=== PATIENT | male | born 1960 | race Two or more races ===

== ENCOUNTER 2019-12-11 11:12 | Observation (INO) ==
[2019-12-11 12:42] LABS: Basophils % 0.2 % (0.0-0.8); Eosinophils % 0.6 % (0.00-10.9); Hematocrit 46.5 VOL% (42.0-52.0); Hemoglobin 16.1 GM/DL (14.0-18.0); Immature Granulocytes % 0.2 %; Immature Granulocytes Absolute 0.01 #; Lymphocytes # 1.8 10*3/uL (1.4-4.0); Mean Corpuscular HGB Conc 34.6 GM/DL (32-36); Mean Corpuscular Volume 90.5 FL (87-102); Mean Platelet Volume 9.5 FL (9.6-12.0); Monocytes % 6.3 % (1.7-12.7); Neutrophils % 65.7 % (38.7-73.9); Platelet Count 241 T/CUMM (130-400); Red Blood Count 5.14 MC/CUMM (3.8-5.5); Red Cell Distribution Width 12.8 % (9.3-17.3); White Blood Count 6.6 T/CUMM (4-12)
[2019-12-11 12:53] LABS: PT Patient Result 10.4 SECS (9.8-11.9); Partial Thromboplastin Time 25.7 SECS (23.9-33.8)
[2019-12-11 13:01] LABS: Alanine Aminotransferase 87 U/L (16-61); Albumin 3.8 G/DL (3.4-5.0); Alkaline Phosphatase 65 U/L (45-117); Aspartate Amino Transferase 41 U/L (0-37); Blood Urea Nitrogen 14 MG/DL (7-18); Calcium 8.9 MG/DL (8.5-10.1); Estimated Glom Filtration Rate 77 ML/MIN; Glucose 92 MG/DL (74-106); Total Protein 8.1 G/DL (6.4-8.3); Troponin I < 0.015 NG/ML (0.00-0.045)
[2019-12-11] MEDS ORDERED: LABETALOL 20 MG/4 ML SYRINGE IV PRN (14:47)
[2019-12-11] MEDS ORDERED: GLUCAGON 1 MG VIAL IM PRN ×2 (14:47→15:39)
[2019-12-11] MEDS ORDERED: diphenhydrAMINE CAP 25 MG CAPSULE PO PRN ×2 (14:47→15:39)
[2019-12-11] MEDS ORDERED: ONDANSETRON 4 MG/2 ML VIAL IV PRN ×2 (14:47→15:39)
[2019-12-11] MEDS ORDERED: ALUMINUM/MAGNES/SIMETH MAX STR 30 ML UDCUP PO PRN ×2 (14:47→15:39)
[2019-12-11] MEDS ORDERED: DEXTROSE 50% 25 GM/50 ML VIAL IV PRN ×2 (14:47→15:39)
[2019-12-11] MEDS ORDERED: BISACODYL 5 MG TABLET PO PRN ×2 (14:47→15:39)
[2019-12-11] MEDS ORDERED: ENOXAPARIN 40 MG/0.4 ML SYRINGE SUBCUT SCH ×2 (15:00→16:00)
[2019-12-11 15:22] LABS: Risk Ratio 4.27; Thyroid Stimulating Hormone 1.55 uIU/ml (0.358-3.74)
[2019-12-11] MEDS ORDERED: hydrALAZINE 20 MG/1 ML VIAL IV PRN ×2 (15:39→15:47)
[2019-12-11] MEDS ORDERED: ASPIRIN EC 325 MG TABLET PO SCH (21:00)
[2019-12-12 05:23] LABS: Basophils % 0.3 % (0.0-0.8); Eosinophils # 0.1 10*3/uL (0.0-0.87); Eosinophils % 1.6 % (0.00-10.9); Hematocrit 44.5 VOL% (42.0-52.0); Hemoglobin 15.1 GM/DL (14.0-18.0); Immature Granulocytes % 0.2 %; Immature Granulocytes Absolute 0.01 #; Lymphocytes # 2.8 10*3/uL (1.4-4.0); Mean Corpuscular HGB Conc 33.9 GM/DL (32-36); Mean Corpuscular Volume 91.9 FL (87-102); Mean Platelet Volume 9.8 FL (9.6-12.0); Neutrophils % 45.9 % (38.7-73.9); Platelet Count 231 T/CUMM (130-400); Red Blood Count 4.84 MC/CUMM (3.8-5.5); Red Cell Distribution Width 12.8 % (9.3-17.3); White Blood Count 6.4 T/CUMM (4-12)
[2019-12-12 05:33] LABS: Calcium 8.7 MG/DL (8.5-10.1)
[2019-12-12] MEDS ORDERED: PANTOPRAZOLE 40 MG TABLET PO SCH ×2 (09:00)
[2019-12-12 12:13] VITALS: BP 143/94
== END 2019-12-12 13:39 | disposition home or self-care (01) ==
LOC: N.EDINP 11:12 → N.ED 11:12 → N.TELES 15:05
PROVIDERS: ADMIT Internal Medicine; ATTEND Internal Medicine